=== PATIENT | female | born 1985 ===

== ENCOUNTER 2017-12-06 09:46 | Outpatient (CLI) | payer OTHER ==
[~2017-12-06] VITALS: Ht 154.9 cm; Wt 68.5 kg
== END 2017-12-06 10:00 | disposition home or self-care (01) ==
LOC: OFIC 805 09:46
DX: J03.80 Acute tonsillitis due to other specified organisms (principal); R07.0 Pain in throat

== ENCOUNTER → 2017-12-06 | Outpatient (CLI) | payer OTHER | END | disposition home or self-care (01) | LOC: LAB 12:01 | DX: J03.90 Acute tonsillitis, unspecified (principal) ==